=== PATIENT | female | born 1965 | race Caucasian/White ===

== ENCOUNTER → 2017-07-14 | Outpatient (CLI) | payer OTHER ==
[~2017-07-14] MED LIST: COL100 PO; DURAGESIC50 MCG/HR; GABAPENTIN300 M3 PO; MAC100 PO; MELATONIN3 MG PO; OXYCODONE5 M3 PO; PRILOSEC20 MG PO; PROAIR HFA0.09 MG/A1 IH; ROB750 PO; TRAMADOL50 M1 PO
== END | disposition home or self-care (01) ==
LOC: MA 07-13 13:00
PROC: BH02ZZZ Plain Radiography of Bilateral Breasts (ICD-10-PCS; principal; 2017-07-14)
DX: Z12.31 Encounter for screening mammogram for malignant neoplasm of breast (principal)
CPT/HCPCS: G0202

== ENCOUNTER → 2018-07-20 | Outpatient (CLI) | payer OTHER | END | disposition home or self-care (01) | LOC: MA 14:58 | PROC: BH02ZZZ Plain Radiography of Bilateral Breasts (ICD-10-PCS; principal; 2018-07-20) | DX: Z12.31 Encounter for screening mammogram for malignant neoplasm of breast (principal) | CPT/HCPCS: 77067 ==

== ENCOUNTER → 2018-08-09 | Outpatient (CLI) | payer OTHER | END | disposition home or self-care (01) | LOC: MA 08-03 15:00 | PROC: BH01ZZZ Plain Radiography of Left Breast (ICD-10-PCS; principal; 2018-08-09) | DX: R92.8 Other abnormal and inconclusive findings on diagnostic imaging of breast (principal) | CPT/HCPCS: 77065 ==

== ENCOUNTER 2021-01-11 09:55 | Emergency (ER) | payer OTHER ==
[~2021-01-11] VITALS: Ht 167.6 cm; Wt 72.6 kg
[2021-01-11 10:02] VITALS: Ht 167.6 cm; Wt 72.6 kg
[2021-01-11 10:53] LABS: BASOPHIL % 1.1 % (0.2-1.3); PLATELET COUNT 249 x10^3mcL (179-408)
[2021-01-11 11:01] LABS: RED CELL DISTRIBUTION WIDTH 15.2 % (12.3-17.7)
[2021-01-11 11:41] LABS: CALCIUM 9.2 mg/dL (8.5-10.1); CARBON DIOXIDE 25.3 mmol/L (21-32); CHLORIDE SERUM 103 mmol/L (98-107); CREATININE SERUM 0.6 mg/dL (0.6-1.0); GFR1 > 60 mL/min; GLUCOSE SERUM 92 mg/dL (74-106); SODIUM SERUM 138 mmol/L (136-145)
[2021-01-11 11:45] LABS: ALBUMIN 3.9 g/dL (3.4-5.0); ALKALINE PHOSPHATASE 76 U/L (46-116); ALT/SGPT 39 U/L (14-59); AST/SGOT 24 U/L (15-37); BILIRUBIN TOTAL 0.4 mg/dL (0.20-1.00); LIPASE 123 IU/L (73-393); TOTAL PROTEIN, SERUM 7.3 g/dL (6.4-8.2)
[2021-01-11] MEDS ORDERED: IBU600 M2 PO (15:21)
[2021-01-11 15:35] VITALS: BP 126/75
== END 2021-01-11 15:35 | disposition home or self-care (01) ==
LOC: ED 09:55
PROVIDERS: Emergency Medicine
DX: R10.32 Left lower quadrant pain (principal); Z90.710 Acquired absence of both cervix and uterus
CPT/HCPCS: J1885; J2270; J2405; Q9967